=== PATIENT | female | born 1965 | race Caucasian/White ===

== ENCOUNTER 2017-03-30 10:41 | Emergency (ER) | END 2017-03-30 17:51 | disposition home or self-care (01) ==

== ENCOUNTER 2017-04-14 18:17 | Emergency (ER) | END 2017-04-14 23:36 | disposition home or self-care (01) ==

== ENCOUNTER 2018-06-07 13:53 | Emergency (ER) | payer OTHER ==
[~2018-06-07] VITALS: Ht 160 cm; Wt 84.2 kg
[~2018-06-07 13:53] MED LIST: GABA300C16 PO; HYDR-3980 PO; IBUP-1544 PO; METH500T PO; NAPR-688 PO; OMEP20CA16 PO; ONDA4TAB11 PO; POLY17PO6 PO; TRAM50TA PO
[2018-06-07 14:10] VITALS: Ht 160 cm; Wt 84.2 kg
[2018-06-07] MEDS ORDERED: ONDANSETRON 4 MG INJ IV STA (18:28)
[2018-06-07] MEDS ORDERED: morphine 4 MG/ML VIAL IV STA (18:28)
[2018-06-07] MEDS ORDERED: SOD CHLORIDE 0.9% 1,000 ML IV STA ×2 (18:28→22:39)
--- NOTE | 2018-06-07 18:36 | ERD ---
ER Documentation Chief Complaint Chief Complaint R flank pain radiating to back X 5 days, polyurea HPI This is a 52-year-old female who has a history of osteoporosis and presents to the emergency department complaining of 5 days of right flank pain. The patient indicates that the pain is 10 out of 10 in intensity. There is no alleviating or exacerbating factors to the pain. She has taken Aleve with no improvement of her symptoms. The patient indicates she also is experiencing abdominal bloating with epigastric discomfort. She denies any chest pain or pressure that radiates to the neck arm back or jaw. Her past surgical history includes a cholecystectomy several years ago. She is also complaining of polyuria and polydipsia but states she has no history of diabetes. She denies any hematuria. She is felt nauseous but has not experience any emesis. She denies any diarrhea. ROS All systems reviewed and are negative except as per history of present illness. Medications Home Meds Active Scripts Naproxen* (Naproxen*) 500 Mg Tablet, 500 MG PO BID PRN for PAIN, #20 TAB Prov:HAILEY YUEN DO 04/14/17 Ondansetron (Zofran Odt) 4 Mg Tab.rapdis, 4 MG PO Q6 for NAUSEA AND/OR VOMITING, #20 Prov:HAILEY YUEN DO 04/14/17 Polyethylene Glycol* (Miralax*) 17 Gm Powd.pack, 17 GM PO DAILY, #7 Prov:HAILEY YUEN DO 04/14/17 Hydrocodone/Acetaminophen ([place] 10-325 Tablet) 1 Each Tablet, 1 TAB PO Q6H PRN for PAIN, #7 TAB Prov:SERAFIN LANE MD 03/30/17 Reported Medications Omeprazole* (Omeprazole*) 40 Mg Capsule., 40 MG PO DAILY, #30 CAP 06/07/18 Ergocalciferol (Vitamin D2) (VITAMIN D2) 2,000 Unit Tablet, 2000 UNIT PO DAILY, TAB 06/07/18 Aspirin* (Aspirin* EC) 81 Mg Tablet.dr, 81 MG PO DAILY, TAB 06/07/18 Methocarbamol* (Robaxin*) 500 Mg Tab, 500 MG PO Q8 PRN for MUSCLE SPASMS, TAB 03/30/17 Ibuprofen* (Ibuprofen*) 800 Mg Tablet, 800 MG PO Q8 PRN for SEVERE PAIN LEVEL 7- 10, TAB 03/30/17 Tramadol Hcl* (Ultram*) 50 Mg Tablet, 50 MG PO DAILY PRN for PAIN, TAB 03/30/17 Gabapentin* (Gabapentin*) 300 Mg Capsule, 600 MG PO BID, #180 CAP 03/30/17 Discontinued Reported Medications Omeprazole* (Omeprazole*) 20 Mg Capsule.dr, 20 MG PO AC BREAKFAST, #30 CAP 03/30/17 Allergies Allergies: Coded Allergies: No Known Allergy (Unverified , 06/07/18) PMhx/Soc History of Surgery: Yes (GALLBLADDER REMOVAL; ectopic , ) Anesthesia Reaction: No Hx Neurological Disorder: No Hx Respiratory Disorders: No Hx Cardiac Disorders: No Hx Psychiatric Problems: No Hx Miscellaneous Medical Probl: Yes (NEUROPATHY, OSTEOARTHRITIS) Hx Alcohol Use: No Hx Substance Use: No Hx Tobacco Use: No Smoking Status: Never smoker Physical Exam Vitals Vital Signs Date Temp Pulse Resp B/P (MAP) Pulse Ox O2 O2 Flow FiO2 Time Delivery Rate 06/07/18 71 18 97/62 (74) 100 Room Air 20:30 06/07/18 71 18 100/61 100 Room Air 18:30 (74) 06/07/18 72 17 105/65 100 Room Air 17:50 (78) 06/07/18 99.3 87 18 137/73 100 14:10 (94) Physical Exam Constitutional:Well-developed. Well-nourished. HEENT:Normocephalic. Atraumatic.Pupils were equal round reactive to light. Moist mucous membranes.No tonsillar exudates. Neck: No nuchal rigidity. No lymphadenopathy. No posterior cervical spine tenderness or step-offs. Respiratory: Not using accessory muscles of respiration.Lungs were clear to auscultation bilaterally. No rhonchi. No rales. No wheezing. Cardiovascular: Regular rate regular rhythm.No murmurs. No rubs were appreciated.S1, S2 normal. Distal pulses are palpable 2+ bilaterally. GI: Abdomen was soft. Right CVA tenderness. Mild epigastric tenderness. Non Distended. No pulsatile abdominal masses or bruits. No rebound. No guarding. Bowel sounds were present and normal. Muscle skeletal: Full range of motion of both the upper and lower extremities bilaterally.Normal muscle tone.No assymetrical calf tenderness or swelling. Skin: No petechia, no purpura. No lesions on the palms or the soles of the feet. No maculopapular rash. NEURO: Patient was alert, awake, orientated x3.No facial droop. Gait observed and normal with no ataxia.Speech had regular rate and rhythm. No focal neurological deficits. Result Diagram: 06/07/18184206/07/181842 Results 24 hrs Laboratory Tests Test 06/07/18 14:13 06/07/18 18:43 Bedside Glucose 104 mg/dL White Blood Count 8.2 10^3/ul Red Blood Count 4.46 10^6/ul Hemoglobin 11.8 g/dl Hematocrit 36.4 % Mean Corpuscular Volume 81.6 fl Mean Corpuscular Hemoglobin 26.5 pg Mean Corpuscular Hemoglobin Concent 32.4 g/dl Red Cell Distribution Width 13.2 % Platelet Count 263 10^3/UL Mean Platelet Volume 11.1 fl Immature Granulocytes % 0.500 % Neutrophils % 68.7 % Lymphocytes % 21.9 % Monocytes % 6.1 % Eosinophils % 2.3 % Basophils % 0.5 % Nucleated Red Blood Cells % 0.0 /100WBC Immature Granulocytes # 0.040 10^3/ul Neutrophils # 5.6 10^3/ul Lymphocytes # 1.8 10^3/ul Monocytes # 0.5 10^3/ul Eosinophils # 0.2 10^3/ul Basophils # 0.0 10^3/ul Nucleated Red Blood Cells # 0.0 10^3/ul Prothrombin Time 12.9 Sec Prothrombin Time Ratio 1.0 INR International Normalized Ratio 0.96 Activated Partial Thromboplast Time 28.9 Sec Sodium Level 141 mmol/L Potassium Level 3.8 mmol/L Chloride Level 103 mmol/L Carbon Dioxide Level 28 mmol/L Anion Gap 10 Blood Urea Nitrogen 9 mg/dl Creatinine 0.54 mg/dl Est Glomerular Filtrat Rate mL/min > 60 mL/min Glucose Level 101 mg/dl Calcium Level 9.6 mg/dl Total Bilirubin 0.2 mg/dl Direct Bilirubin 0.00 mg/dl Indirect Bilirubin 0.2 mg/dl Aspartate Amino Transf (AST/SGOT) 23 IU/L Alanine Aminotransferase (ALT/SGPT) 22 IU/L Alkaline Phosphatase 101 IU/L Troponin I < 0.012 ng/ml Total Protein 7.4 g/dl Albumin 4.3 g/dl Globulin 3.10 g/dl Albumin/Globulin Ratio 1.38 Amylase Level 66 U/L Lipase 79 U/L Current Medications Medications Dose Sig/Glynn Start Time Status Last (Trade) Ordered Route PRN Stop Time Admin Dose Reason Admin Sodium 1,000 ml @ Q1H STAT 06/07/18 DC 06/07/18 Chloride 1,000 mls/hr IV 18:28 06/07/18 18:50 19:27 Morphine 4 mg ONCE STAT 06/07/18 DC 06/07/18 Sulfate IV 18:28 06/07/18 18:50 (morphine) 18:30 Ondansetron 4 mg ONCE STAT 06/07/18 DC 06/07/18 HCl (Zofran IV 18:28 06/07/18 18:51 Inj) 18:30 Ketorolac 30 mg ONCE ONCE 06/07/18 DC Tromethamine IV 22:40 06/07/18 (Toradol) 22:41 Sodium 1,000 ml @ Q1H STAT 06/07/18 Chloride 1,000 mls/hr IV 22:39 06/07/18 23:38 Procedures/MDM This patient presented to the emergency department with abdominal pain and was seen and evaluated by myself. My differential diagnosis included but was not martinez ited to abdominal aortic aneurysm, appendicitis, pancreatitis, perforated peptic ulcer, perforated viscus, Boerhaaves syndrome or visceral pain such as diverticulitis, DKA, esophagitis, hepatitis or bowel obstruction. The patient was placed on a rn cardiac cath, continuous pulse oximetry, and IV access was established by nursing staff. The patient was given intravenous morphine for analgesic control I did obtain a 12-lead EKG tracing to rule out for atypical myocardial infarction given that the patient was also complained of epigastric discomfort. 12 Lead EKG tracing ordered and reviewed by myself showed: Normal sinus rhythm of 71 bpm and no arrhythmia. DC interval normal. QRS duration normal. No ST segment elevation No ST segment depression. No changes consistent with acute ischemia. CT scan of the abdomen or and reviewed by myself the radiologist indicate the followin. Trace right hydroureteronephrosis is traceable to what is believed to be a tiny 1 mm distal right ureteral calculus at the level of the crossing over of the iliac vessels. Correlation with urinalysis, if not already performed, is suggested. 2. No additional urinary tract calculi are present. 3. Hepatic steatosis and cholecystectomy changes are again noted demonstrated on the prior study. 4. Bilateral hip joint osteoarthrosis. The patient no severe loculate abnormalities. Urinalysis is currently pending. However the patient was now also complaining of mild frequency and urgency and therefore I do feel will benefit from a trial of outpatient antibiotics. Her pain completely resolved after she received opiates and Toradol. Observation Note: Time: 8 hours Family Hx: No Hypertension Evaluation: Multiple exams showed improving symptoms and no evidence of obstructive uropathy The patient was discharged home in fair condition. They were instructed to return to the emergency department at any time if there was any worsening of their condition. The patient stated they would follow up with their PCP in the next 24-48 hours to initiate a suitable medication regimen under the care of their PCP as well as to allow their PCP to monitor any drug reactions. The patient was discharged home with prescriptions after they gave informed consent to the new medication. They were also fully informed by myself on the adverse effects and adverse drug interactions in order to provide adequate safeguards to prevent possible adverse reactions to medications. Departure Diagnosis: Primary Impression: Flank pain Additional Impression: Nephrolithiasis Condition: VIRGILIO Moe MD Jun 07, 2018 18:36
[2018-06-07] MEDS ORDERED: ASPI-817 PO (21:16)
[2018-06-07] MEDS ORDERED: ERGO2000 PO (21:16)
[2018-06-07] MEDS ORDERED: OMEP40CA6 PO (21:18)
[2018-06-07] MEDS ORDERED: KETOROLAC 30 MG INJ IV ONE (22:40)
[2018-06-07] MEDS ORDERED: IBUP800T48 PO (22:50)
[2018-06-07] MEDS ORDERED: HYDR-4011 PO (22:50)
[2018-06-07] MEDS ORDERED: CIPR500T4 PO (22:50)
[2018-06-07 23:00] VITALS: BP 110/71; PULSE 72; RESP 18
== END 2018-06-07 23:05 | disposition home or self-care (01) ==
LOC: E/R 13:53
DX: N20.0 Calculus of kidney (principal); Z79.82 Long term (current) use of aspirin
CPT/HCPCS: 74176; 80053; 81001; 82150; 82962; 83690; 84484; 85025; 85610; 85730; 96361; 96374; 96375; J1885; J2270; J2405; J7030; Z7502

== ENCOUNTER 2018-09-06 19:33 | Emergency (ER) | payer OTHER ==
[~2018-09-06] VITALS: Ht 157.5 cm; Wt 85.8 kg
[~2018-09-06 19:33] MED LIST changes: +ASPI-817 PO; +CIPR500T4 PO; +ERGO2000 PO; +HYDR-4011 PO; +IBUP800T48 PO; -OMEP20CA16 PO; +OMEP40CA6 PO
[2018-09-06 19:36] VITALS: Ht 157.5 cm; Wt 85.8 kg
--- NOTE | 2018-09-06 20:11 | ERD ---
ER Documentation Chief Complaint Chief Complaint Upper abd pain worse on L with nausea 5 days HPI 52-year-old female presenting with upper abdominal pain, worse on the left side, aching, radiating to her back. She has been experiencing this intermittently for the past 5 days. She has had associated belching and acid reflux. She has a history of gastritis and is on omeprazole daily. She denies any change in her diet. No fevers or chills. She does have nausea but no vomiting. No melena or hematochezia. Exacerbated by food. No alleviating factors. ROS All systems reviewed and are negative except as per history of present illness. Medications Home Meds Active Scripts Famotidine* (Pepcid*) 20 Mg Tablet, 20 MG PO BID for 7 Days, TAB Prov:ADALID DEUTSCH MD 09/06/18 Hydrocodone/Acetaminophen ([place] 5-325 Tablet) 1 Each Tablet, 1 TAB PO Q6H PRN for PAIN, #7 TAB Prov:VIRGILIO STOVER MD 06/07/18 Ciprofloxacin Hcl* (Ciprofloxacin Hcl*) 500 Mg Tablet, 500 MG PO BID for 7 Days, TAB Prov:VIRGILIO STOVER MD 06/07/18 Ibuprofen* (Motrin*) 800 Mg Tab, 800 MG PO Q6H PRN for PAIN AND OR ELEVATED TEMP , #30 TAB Prov:VIRGILIO STOVER MD 06/07/18 Naproxen* (Naproxen*) 500 Mg Tablet, 500 MG PO BID PRN for PAIN, #20 TAB Prov:HAILEY YUEN DO 04/14/17 Ondansetron (Zofran Odt) 4 Mg Tab.rapdis, 4 MG PO Q6 for NAUSEA AND/OR VOMITING, #20 Prov:HAILEY YUEN DO 04/14/17 Polyethylene Glycol* (Miralax*) 17 Gm Powd.pack, 17 GM PO DAILY, #7 Prov:HAILEY YUEN DO 04/14/17 Hydrocodone/Acetaminophen ([place] 10-325 Tablet) 1 Each Tablet, 1 TAB PO Q6H PRN for PAIN, #7 TAB Prov:SERAFIN LANE MD 03/30/17 Reported Medications Omeprazole* (Omeprazole*) 40 Mg Capsule.dr, 40 MG PO DAILY, #30 CAP 06/07/18 Ergocalciferol (Vitamin D2) (VITAMIN D2) 2,000 Unit Tablet, 2000 UNIT PO DAILY, TAB 06/07/18 Aspirin* (Aspirin* EC) 81 Mg Tablet.dr, 81 MG PO DAILY, TAB 06/07/18 Methocarbamol* (Robaxin*) 500 Mg Tab, 500 MG PO Q8 PRN for MUSCLE SPASMS, TAB 03/30/17 Ibuprofen* (Ibuprofen*) 800 Mg Tablet, 800 MG PO Q8 PRN for SEVERE PAIN LEVEL 7- 10, TAB 03/30/17 Tramadol Hcl* (Ultram*) 50 Mg Tablet, 50 MG PO DAILY PRN for PAIN, TAB 03/30/17 Gabapentin* (Gabapentin*) 300 Mg Capsule, 600 MG PO BID, #180 CAP 03/30/17 Allergies Allergies: Coded Allergies: No Known Allergy (Unverified , 06/07/18) PMhx/Soc History of Surgery: Yes (GALLBLADDER REMOVAL; ectopic , ) Anesthesia Reaction: No Hx Neurological Disorder: No Hx Respiratory Disorders: No Hx Cardiac Disorders: No Hx Psychiatric Problems: No Hx Miscellaneous Medical Probl: Yes (NEUROPATHY, OSTEOARTHRITIS) Hx Alcohol Use: No Hx Substance Use: No Hx Tobacco Use: No Smoking Status: Never smoker FmHx Family History: No diabetes Physical Exam Vitals Vital Signs Date Temp Pulse Resp B/P (MAP) Pulse Ox O2 O2 Flow FiO2 Time Delivery Rate 09/06/18 98.3 70 16 129/64 98 19:36 (85) Physical Exam Const: No acute distress Head: Atraumatic Eyes: Normal Conjunctiva ENT: Normal External Ears, Nose and Mouth. Neck: Full range of motion. No meningismus. Resp: Clear to auscultation bilaterally Cardio: Regular rate and rhythm, no murmurs Abd: Soft, non tender, non distended. Normal bowel sounds Skin: No petechiae or rashes Back: No midline or flank tenderness Ext: No cyanosis, or edema Neur: Awake and alert Psych: Normal Mood and Affect Result Diagram: 09/06/18201409/06/182014 Results 24 hrs Laboratory Tests Test 09/06/18 20:15 White Blood Count 8.3 10^3/ul Red Blood Count 4.45 10^6/ul Hemoglobin 11.8 g/dl Hematocrit 35.8 % Mean Corpuscular Volume 80.4 fl Mean Corpuscular Hemoglobin 26.5 pg Mean Corpuscular Hemoglobin Concent 33.0 g/dl Red Cell Distribution Width 13.4 % Platelet Count 283 10^3/UL Mean Platelet Volume 10.9 fl Immature Granulocytes % 0.200 % Neutrophils % 70.2 % Lymphocytes % 20.0 % Monocytes % 5.8 % Eosinophils % 3.3 % Basophils % 0.5 % Nucleated Red Blood Cells % 0.0 /100WBC Immature Granulocytes # 0.020 10^3/ul Neutrophils # 5.8 10^3/ul Lymphocytes # 1.7 10^3/ul Monocytes # 0.5 10^3/ul Eosinophils # 0.3 10^3/ul Basophils # 0.0 10^3/ul Nucleated Red Blood Cells # 0.0 10^3/ul Sodium Level 142 mmol/L Potassium Level 3.3 mmol/L Chloride Level 104 mmol/L Carbon Dioxide Level 27 mmol/L Anion Gap 11 Blood Urea Nitrogen 10 mg/dl Creatinine 0.68 mg/dl Est Glomerular Filtrat Rate mL/min > 60 mL/min Glucose Level 113 mg/dl Calcium Level 9.3 mg/dl Total Bilirubin 0.3 mg/dl Direct Bilirubin 0.00 mg/dl Indirect Bilirubin 0.3 mg/dl Aspartate Amino Transf (AST/SGOT) 21 IU/L Alanine Aminotransferase (ALT/SGPT) 23 IU/L Alkaline Phosphatase 101 IU/L Total Protein 7.5 g/dl Albumin 4.3 g/dl Globulin 3.20 g/dl Albumin/Globulin Ratio 1.34 Lipase 98 U/L Current Medications Medications Dose Sig/Glynn Start Time Status Last (Trade) Ordered Route PRN Stop Time Admin Dose Reason Admin 10 mg ONCE STAT 09/06/18 DC 09/06/18 Metoclopramid IV 20:22 09/06/18 20:29 e HCl 20:24 (Reglan) Famotidine 20 mg ONCE STAT 09/06/18 DC 09/06/18 (Pepcid) PO 20:22 09/06/18 20:28 20:24 40 ml ONCE STAT 09/06/18 DC 09/06/18 Miscellaneous PO 20:22 09/06/18 20:28 Medication 20:24 (Gi Cocktail (2)) Procedures/MDM EMERGENT LABS AND DIAGNOSTIC STUDIES: Lab Results above were reviewed and interpreted by me. CBC: no anemia or evidence of infection CMP: Mild hypokalemia. No evidence of clinically significant electrolyte abnormality, acidosis, renal failure, hypoglycemia, liver disease, or biliary obstruction Lipase: no evidence of pancreatitis Initial Nursing notes reviewed. Previous Medical Records requested via the Electronic Health Record. EMERGENCY DEPARTMENT COURSE / MEDICAL DECISION MAKING: Differential includes but is not limited to pancreatitis, hepatitis, gastritis. Doubt pneumonia, colitis, cardiac pathology, aortic dissection, ureterolithiasis, pyelonephritis. Labs were ordered to evaluate for above and were notable for only mild hypokalemia. Imaging was considered but I do not think imaging is indicated in this case. I have a low Suspicion for acute surgical abdomen. I suspect the patient's pain is secondary to gastritis versus peptic ulcer disease. Follow-up with PCP was recommended. Prescription for Pepcid given. Return precautions discussed. Patient's blood pressure was elevated (>120/80) but appears stable without evidence of hypertensive emergency or urgency. The patient was counseled about the risks of hypertension and urged to pursue outpatient monitoring and therapy within a week with their primary care physician. Departure Diagnosis: Primary Impression: Abdominal pain Abdominal location: upper abdomen, unspecified Qualified Codes: R10.10 - Upper abdominal pain, unspecified Condition: Stable EKADALID URIARTE MD Sep 06, 2018 20:11
[2018-09-06] MEDS ORDERED: LIDOCAINE/MYLANTA 40 ML BTL PO STA (20:22)
[2018-09-06] MEDS ORDERED: FAMOTIDINE 20 MG TAB PO STA (20:22)
[2018-09-06] MEDS ORDERED: METOCLOPRAMIDE 10 MG INJ IV STA (20:22)
[2018-09-06] MEDS ORDERED: FAMO-96 PO (21:17)
[2018-09-06 21:26] VITALS: BP 125/69; PULSE 71; RESP 16
== END 2018-09-06 21:28 | disposition home or self-care (01) ==
LOC: E/R 19:33
DX: R10.10 Upper abdominal pain, unspecified (principal); Z79.82 Long term (current) use of aspirin
CPT/HCPCS: 80053; 83690; 85025; J2765; Z7610; 36415; 96374

== ENCOUNTER 2018-11-07 17:52 | Emergency (ER) | payer OTHER ==
[~2018-11-07] VITALS: Ht 154.9 cm; Wt 86.6 kg
[~2018-11-07 17:52] MED LIST changes: +FAMO-96 PO; +MECL12.574 PO
[2018-11-07 18:03] VITALS: Ht 154.9 cm; Wt 86.6 kg
[2018-11-07] MEDS ORDERED: ONDANSETRON 4 MG INJ IV STA (18:56)
[2018-11-07] MEDS ORDERED: SOD CHLORIDE 0.9% 1,000 ML IV STA (18:56)
[2018-11-07 20:15] VITALS: BP 115/64; PULSE 63; RESP 16
== END 2018-11-07 20:20 | disposition home or self-care (01) ==
LOC: FTE 17:52
DX: R42 Dizziness and giddiness (principal); R11.0 Nausea; Z79.82 Long term (current) use of aspirin
CPT/HCPCS: 36415; 80048; 85025; 96361; 96374; J2405; J7030; Z7502